=== PATIENT | male | born 1965 | race Caucasian/White ===

== ENCOUNTER → 2017-09-24 | Outpatient (CLI) | payer OTHER ==
[~2017-09-24] MED LIST: CENTRUM SILVER1 EAC4 PO
--- NOTE | 2017-10-21 14:16 | PAINCON ---
[address] [address] PAIN MANAGEMENT CONSULTATION Name: AUDIE CORMIER Room: [facility] Camp#: [id number] Admission: 09/24/17 Attend Phys: Santino Roach MD Discharge: Date of : 65 Report #: [id number] THIS REPORT FOR: //name// CC: Tricia Roach DATE OF SERVICE: 09/24/2017 FOLLOWUP COMPLAINT: "I have noticed worsening of pain in my arm with tingling down in my fingers." FOLLOWUP HISTORY: The patient is a 52-year-old gentleman who has been seen in the Pain Clinic in the past because of cervical radiculopathy. The patient has noticed worsening of his pain over the last few months. He states that he works at a [employer]. 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 He notes that while mopping/sweeping under a chair, he noticed some pain and discomfort, which radiated from his neck up into the back of his head and produced headache. This is one of the usual presentations for his pain and discomfort. He finds that the job is quite physical. 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 After that, he notes some pain and discomfort, which is worsened up in the cervical area. He states that his pain sometimes becomes so difficult that he almost has to stop because of discomfort. He would like to proceed with another cervical injection, which was beneficial in the past. He rates his pain anywhere from a 4 to 7 depending on his level of activity. ALLERGIES: PENICILLIN. CURRENT MEDICATIONS: Multivitamins. PAIN CLINIC ASSESSMENT: 1. The patient is not being treated for osteoarthritis or rheumatoid arthritis. 2. Height 6 feet, weight 213 pounds, BMI is 28.9. 3. Vital signs: Blood pressure 131/88, heart rate 73, respiratory rate 16, room air saturation 95%, temperature 98.7. 4. Pain intensity: Between 4-7/10 depending on activity. 5. Fall risk: The patient has not fallen in the last 3 months. 6. Blood thinners: The patient is on a blood thinning medication. 7. Hypertension: The patient is not being treated for hypertension. 8. Opioid therapy greater than 6 weeks: The patient is not on an opioid regimen. 9. Risk assessment tool was low for use of opioid medications. 10. Functional assessment tool was a 10 on the scale of 70 in 03/2016, at a higher level at this juncture. 11. Recreational drug use: The patient denies use of recreational drugs. 12. Tobacco: The patient denies use of tobacco. 13. Alcohol: The patient [place] [address] PAIN MANAGEMENT CONSULTATION Name: AUDIE CORMIER Room: [facility]#: [id number] Admission: 09/24/17 Attend Phys: Santino Roach MD Discharge: Date of : 65 Report #: [id number] PHYSICAL EXAMINATION: GENERAL: The patient is a well-developed, well-nourished white male. He appears his stated age. He is alert and oriented x 3. HEENT: Normocephalic, atraumatic. Extraocular eye muscles intact. Sclerae nonicteric. Mucous membranes are moist. NECK: Without JVD, adenopathy, or bruits. The patient has some pain and discomfort in the posterior portion of his neck which radiates into his head when his pain becomes problematic. HEART: Regular rate. S1, S2. LUNGS: Clear to auscultation, without rales or rhonchi. ABDOMEN: Nontender. MUSCULOSKELETAL: Strength in the upper extremity judged to be 5/5 for the major muscle groups in the upper extremity. He has decreased sensation to pinprick, light touch in the left and right C6-C7 dermatomal distribution. He has some numbness and tingling in his ring and little finger on both sides. It depends on the level of activity as to how much discomfort he experiences. Muscle mass appears symmetrical. He notes some occasional shooting pain into the posterior portion of his head. Lower extremity muscle strength is judged to be 5/5 for the major muscle groups with symmetry and without sensory changes. IMPRESSION: Cervical radicular pain involving the C6-C7 dermatomal distribution. RECOMMENDATIONS: We discussed treatment options with the patient. At this juncture, he is noticing worsening of his pain. 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 He would like to proceed with a cervical epidural steroid injection given he is having worsening of his pain and discomfort. He will return to the Pain Clinic after he has been pre-certified by his insurance company. At that time, he will undergo a cervical epidural steroid injection. It has been successful in the past with greater than 50% improvement. He will return to the Pain Clinic at which time after being pre-certified, we will proceed with a cervical epidural steroid injection series. We would like to thank you for letting us participate in his care. We hope he continues to improve. <ELECTRONICALLY SIGNED> By: Santino Roach MD 10/21/17 1416 1405 [id number]. MD barrington Victoria
== END ==
LOC: M.PC 03:54
DX: M54.12 Radiculopathy, cervical region (principal)

== ENCOUNTER → 2017-10-13 | Outpatient (CLI) | payer OTHER ==
--- NOTE | 2017-10-21 14:16 | PAINCON ---
[address] [address] PAIN MANAGEMENT CONSULTATION Name: AUDIE CORMIER Room: [facility] BlakeMarcelino#: [id number] Admission: 10/13/17 Attend Phys: Santino Roach MD Discharge: Date of : 65 Report #: [id number] THIS REPORT FOR: //name// CC: Tricia Roach DATE OF SERVICE: 10/13/2017 CHIEF COMPLAINT: Pain in the neck with pain down into both fingers with numbness and tingling. FOLLOWUP HISTORY: The patient is a 52-year-old gentleman who has been seen in the pain clinic because of cervical radiculopathy. He has undergone epidural steroid injections with some benefit. He returns today indicating that his pain has recurred. He rates it as a 7-8/10. He is not taking any medications at this juncture. Denies any new trauma. As you may recall, he works with the [employer]. 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 States that he has been experiencing more pain and discomfort while mopping, sweeping and doing activities while cleaning. He feels that that job is quite physical. He did have to move up to 270 chairs. He has returned today for a cervical epidural steroid injection to help calm his pain and discomfort. ALLERGIES: PENICILLIN. CURRENT MEDICATIONS: Multivitamins have been used in the past. He is taking no medications at this juncture other than multivitamins. PAIN CLINIC ASSESSMENT: 1. The patient has not been treated for osteoarthritis or rheumatoid arthritis. 2. Height 5 feet 10 inches, weight 216 pounds, BMI 31. 3. Vital signs: Blood pressure 123/80, heart rate 74, respiratory rate 16, room air saturation 95, and temperature 98.5. 4. Pain intensity 7-8/10, depending on his activity. 5. Fall risk. The patient has not fallen in the last 3 months. 6. Blood thinners. The patient is not on a blood thinning medication. 7. Hypertension. The patient is not being treated for hypertension. 8. Opioid therapy greater than 6 weeks. The patient is not on an opioid regimen. 9. Risk assessment tool, low for use of opioid medication. 10. Functional assessment tool 110/70. 11. Recreational drug use. The patient denies use of recreational drugs. 12. Tobacco: The patient denies use of tobacco. 13. Alcohol. The patient states that he drinks only occasionally. PHYSICAL EXAMINATION: GENERAL: The patient is a well-developed, well-nour[place] [address] PAIN MANAGEMENT CONSULTATION Name: AUDIE CORMIER Room: [facility] [employer] [facility]#: [id number] Admission: 10/13/17 Attend Phys: Santino Roach MD Discharge: Date of : 65 Report #: [id number] appears his stated age. He is alert and oriented x 3. HEENT: Normocephalic, atraumatic. Extraocular eye muscles intact. Sclerae nonicteric. Mucous membranes are moist. NECK: Without JVD, adenopathy, or bruits. The patient has pain and discomfort with pain that radiates into the anterior portion of his neck, radiates down into his hands with some numbness and tingling in both hands. LUNGS: Clear to auscultation. HEART: Regular rate. S1, S2. MUSCULOSKELETAL: Without significant lordosis, scoliosis or kyphosis. Notes some decreased sensation to pinprick, light touch in his left and right C6-C7 dermatomal distribution in his hands. Muscle mass and symmetry appeared normal. Lower extremity muscle strength judged to be 5/5 for the major muscle groups in the lower extremity. The patient states that he does have some left foot numbness. 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 IMPRESSION: 1. Cervical radiculopathy involving the C6-C7 dermatomal distribution, left and right side. 2. 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 RECOMMENDATIONS: We discussed treatment options with the patient. Risks and benefits of a cervical epidural steroid injection were again reviewed. Possible complication of the procedure, which could include but are not limited to infection, increased muscle soreness, headaches, bleeding, worsening of pain, paralysis, headache, post-procedure were discussed. The patient elects to proceed. PROCEDURE NOTE: The patient was assisted in getting on the examination table. His back was sterilely prepped with a Betadine solution, which was allowed to dry. Anterior, posterior as well as lateral viewing with fluoroscopy were used to perform the procedure. His neck had been sterilely prepped with a Betadine solution. A 0.25% bupivacaine was infiltrated in the midline approach in the interlaminar area at C7-T1. A total of 120 mg triamcinolone was injected. There were no complications. The patient tolerated the procedure well. A total of 46 seconds fluoroscopy time was used. The patient's pain level was reported as 3/10 at the time of discharge. Band-Aid was placed. There was no bleeding. He will follow up in the future as needed. We would like to thank you for letting us participate in his care. We hope he continues to improve. <ELECTRONICALLY SIGNED> By: Santino Roach MD 10/21/17 1416 0019 [id number]. Joss Roach MD /melida
== END | disposition home or self-care (01) ==
LOC: M.PC 04:47
DX: M54.12 Radiculopathy, cervical region (principal); G89.29 Other chronic pain; Z88.0 Allergy status to penicillin; Z98.890 Other specified postprocedural states

== ENCOUNTER → 2017-11-03 | Outpatient (CLI) | payer OTHER ==
--- NOTE | 2017-11-06 08:37 | PAINCON ---
[address] [address] PAIN MANAGEMENT CONSULTATION Name: CORMIERAUDIE Room: [facility] HEALTHEricka.#: [id number] Admission: 11/03/17 Attend Phys: Santino Roach MD Discharge: Date of : 65 Report #: [id number] THIS REPORT FOR: //name// CC: Tricia Roach DATE OF SERVICE: 11/03/2017 PRIMARY CARE PHYSICIAN: Tricia Seth MD FOLLOWUP COMPLAINT: Pain in the neck has improved since the last injection. I was contemplating another injection, but I might want to wait. FOLLOWUP HISTORY: The patient is a 52-year-old gentleman who has been followed in the pain clinic because of cervical radiculopathy. He has undergone epidural steroid injections because of pain and discomfort. He had been experiencing pain, which radiated down into his fingers with numbness and tingling. After last injection, he has noted about 75% relief. He still has some spasms from time to time. Sometimes, he has spasms on one day and then may not have very many spasm the following day. He feels overall that things are much better. Rates his pain as 3-4/10. 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 He is working 7 days a week. He is contemplating quitting. 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 This relationship is not working as well as he would like for to work. At this juncture, he feels his pain has improved. Realizing that it would be quite a number of months before he can get another epidural steroid injection and his pain become problematic, he has chosen a more conservative approach. He will call us when he notes the pain has started to increase. At that point, he will return to the pain clinic with the possibility of getting a cervical epidural steroid injection. ALLERGIES: PENICILLIN. CURRENT MEDICATIONS: Multivitamins used in the past. He is not taking any medication at this juncture other than multiple vitamins. PAIN CLINIC ASSESSMENT: 1. The patient has not been treated for osteoarthritis or rheumatoid arthritis. 2. Height 5 feet 11 inches, weight 216 pounds, BMI is 31. 3. Vital signs: Blood pressure 146/93, heart rate 73, respiratory rate 16, room air saturation 95%, temperature 98.3. Pain score 3-4/10. 4. Fall risk. The patient has not fallen in the last 3 months. 5. Blood thinner. The patient is not on a blood thinning medication. 6. Hypertension. The patient is not being treated for hypertension. 7. Opioid therapy greater than 6 weeks. The [place] [address] PAIN MANAGEMENT CONSULTATION Name: CORMIERAUDIE K Room: [facility]#: [id number] Admission: 11/03/17 Attend Phys: Santino Roach MD Discharge: Date of : 65 Report #: [id number] 8. Risk assessment tool, low for use of opioid medication. 9. Functional assessment tool, . 10. Recreational drug use. The patient denies use of recreational drugs. 11. Tobacco: The patient denies use of tobacco. 12. Alcohol: The patient denies use of alcoholic beverages. The patient does drink an alcoholic beverage daily. PHYSICAL EXAMINATION: GENERAL: The patient is a well-developed, well-nourished, white male. He appears his stated age. He is alert and oriented x 3. His affect is appropriate. Speech is fluent. HEENT: Normocephalic, atraumatic. Extraocular eye muscles intact. Sclerae nonicteric. Mucous membranes are moist. NECK: Without JVD, adenopathy or bruits. The patient has pain and discomfort with radiation down into his hands that is decreased. He has less tingling. HEART: Regular rate. S1, S2. LUNGS: Clear to auscultation without rales or rhonchi. MUSCULOSKELETAL: Without significant lordosis, scoliosis. ABDOMEN: Nontender. The patient is having less discomfort down into his hands. Food [employer] strength 5/5 with symmetry. Muscle bulk is symmetrical as well. Lower extremity muscle strength 5/5. The patient has had some left foot numbness in the past. 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 IMPRESSION: 1. Cervical radiculopathy involving the C6-C7 dermatomal distribution, left and right side. 2. 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 RECOMMENDATIONS: We discussed treatment options with the patient. At this juncture, he feels that the pain has improved significantly. He is having less pain and discomfort. He feels that he can engage in activities of daily living with less pain. He feels that he has a limited number of injections. He would like to save this one until things became more problematic. He will follow up in the pain clinic in the future as needed. We would like to thank you for letting us participate in his care. We hope he continues to improve. <ELECTRONICALLY SIGNED> By: Santino Roach MD 11/06/17 0837 1420 [id number]. MD KRISTIE Victoria
== END ==
LOC: M.PC 04:50
DX: M54.12 Radiculopathy, cervical region (principal); R20.0 Anesthesia of skin

== ENCOUNTER 2018-12-26 15:15 | Emergency (ER) | payer OTHER ==
[~2018-12-26] VITALS: Ht 180.3 cm; Wt 108.9 kg
[2018-12-26 15:23] VITALS: BP 157/97
[2018-12-26] MEDS ORDERED: DOXYCYCLINE 10100 MG PO (15:37)
== END 2018-12-26 15:44 | disposition home or self-care (01) ==
LOC: M.ERS 15:15
DX: S60.412A Abrasion of right middle finger, initial encounter (principal); L03.011 Cellulitis of right finger; Z88.0 Allergy status to penicillin; W57.XXXA Bitten or stung by nonvenomous insect and other nonvenomous arthropods, initial encounter; Y92.89 Other specified places as the place of occurrence of the external cause; Y93.89 Activity, other specified; Y99.8 Other external cause status

== ENCOUNTER → 2019-01-06 | Outpatient (CLI) | payer OTHER ==
[~2019-01-06] MED LIST changes: +DOXYCYCLINE 10100 MG PO
== END ==
LOC: M.RAD 16:43
DX: S63.282A Dislocation of proximal interphalangeal joint of right middle finger, initial encounter (principal); X58.XXXA Exposure to other specified factors, initial encounter; Y93.89 Activity, other specified; Y92.89 Other specified places as the place of occurrence of the external cause; Y99.8 Other external cause status

== ENCOUNTER → 2019-09-28 | Outpatient (CLI) | payer OTHER ==
--- NOTE | 2019-09-30 08:41 | TST ---
[place] [address] TREADMILL STRESS TEST Name: AUDIE CORMIER Room: [facility]#: [id number] Admission: 09/28/19 Attend Phys: Maria De Jesus Moody Discharge: Date of : 65 Date of Service: 09/28/19 1800 Report #: [id number] THIS REPORT FOR: cc: Maria De Jesus Hernandez NP, Stefany NP Liston, Michael J. MD [facility] ~ CC: Maria De Jesus Hernandez NP DATE OF SERVICE: 09/28/2019 REFERRING PHYSICIAN: Maria De Jesus Hernandez NP INDICATION: Chest pain. CARDIAC HISTORY: None. CARDIAC RISK FACTORS: Age greater than 45, hypertension, and tobacco use, quit in 1991. CARDIAC MEDICATIONS: Lisinopril. The patient exercised per standard Jimmy protocol for a total of 13 minutes. The patient achieved 104% of the maximum predicted heart rate and an energy expenditure equivalent to 14.16 METs. The patient exhibited excellent exercise tolerance. The patient has no significant cardiac symptoms. The resting blood pressure was 153/94 mmHg with a resting heart rate of 65 beats per minute. At peak stress, the blood pressure was 138/62 mmHg with a peak stress heart rate of 174 beats per minute. In recovery, the blood pressure was 143/92 mmHg with a recovery heart rate of 96 beats per minute. Exercise was stopped due to achievement of target heart rate. The baseline 12-lead EKG shows sinus rhythm without significant ST segment or T-wave abnormality. EKGs obtained during and post -exercise shows sinus rhythm and sinus tachycardia with no significant ST-segment changes when compared to baseline. There were no stress-induced arrhythmias. IMPRESSION: 1. Clinical response: Nonischemic. 2. EKG response: Nonischemic. 3. Exercise tolerance: [place] [address] TREADMILL STRESS TEST Name: CORMIERAUDIE Mari Room: [facility]#: [id number] Admission: 09/28/19 Attend Phys: Maria De Jesus Moody Discharge: Date of : 65 Date of Service: 09/28/19 1800 Report #: [id number] CONCLUSION: This standard Jimmy protocol shows no EKG or clinical evidence of stress-induced ischemia. This is a low-risk study. <ELECTRONICALLY SIGNED> By: Alexis Renteria MD, FACC 09/30/19 0841 1800 30 Alexis Renteria MD, FACC /nt
== END ==
LOC: M.CRD 15:00
PROVIDERS: ATTEND Nurse Practitioner Family
DX: R07.2 Precordial pain (principal); R07.9 Chest pain, unspecified; I10 Essential (primary) hypertension; Z00.01 Encounter for general adult medical examination with abnormal findings; Z68.34 Body mass index [BMI] 34.0-34.9, adult

== ENCOUNTER → 2019-10-10 | Outpatient (CLI) | payer OTHER | LOC: M.LAB 08:17 | PROVIDERS: ATTEND Internal Medicine Gastroenterology | DX: Z01.812 Encounter for preprocedural laboratory examination (principal); Z11.59 Encounter for screening for other viral diseases; Z12.11 Encounter for screening for malignant neoplasm of colon ==

== ENCOUNTER 2020-10-23 20:27 | Emergency (ER) | payer OTHER ==
[~2020-10-23] VITALS: Ht 180.3 cm; Wt 108.9 kg
[2020-10-23] MEDS ORDERED: LISINOPRIL-HCT1 EAC1 PO (20:57)
[2020-10-23] MEDS ORDERED: CEPHALEXIN500 MG PO (22:50)
[2020-10-23 23:01] VITALS: BP 138/88
== END 2020-10-23 23:01 | disposition home or self-care (01) ==
LOC: M.ERS 20:27
DX: S81.811A Laceration without foreign body, right lower leg, initial encounter (principal); Z88.0 Allergy status to penicillin; Z79.899 Other long term (current) drug therapy; W27.8XXA Contact with other nonpowered hand tool, initial encounter; Y93.89 Activity, other specified; Y92.89 Other specified places as the place of occurrence of the external cause; Y99.9 Unspecified external cause status